=== PATIENT | female | born 1960 | race Caucasian/White ===

== ENCOUNTER 2016-05-15 18:11 | Emergency (ER) | payer OTHER ==
[~2016-05-15] VITALS: Ht 172.7 cm; Wt 90.9 kg
[2016-05-15 18:14] VITALS: BP 135/79; PULSE 72; RESP 16; O2SAT 97
[2016-05-15 18:55] LABS: BASOPHILS % (AUTO) 0.6 % (0-3); EOSINOPHILS % (AUTO) 0.8 % (0-5); MONOCYTES % (AUTO) 6.3 % (4-12); Mean Corpuscular Hemoglobin 29.6 pg (27.0-35.0); Mean Corpuscular Volume 87.5 fL (81-100); NEUTROPHILS % (AUTO) 42.6 % (40-74); Platelet Count 276 bil/L (150-400)
[2016-05-15 19:17] LABS: TROPONIN T < 0.010 ug/L (0.0-0.011)
[2016-05-15 19:24] LABS: Magnesium 2.1 mg/dL (1.6-2.6)
== END 2016-05-15 20:17 | disposition left against medical advice (07) ==
LOC: SED 18:11
DX: Z53.21 Procedure and treatment not carried out due to patient leaving prior to being seen by health care provider (principal)